=== PATIENT | female | born 1940 | race Caucasian/White ===

== ENCOUNTER 2017-02-09 06:58 | Observation (INO) | payer OTHER ==
[2017-02-09] VITALS (10 sets, daily range): BP systolic 114–166; BP diastolic 74–93; PULSE 73–82; TEMP 36.3–37.3; O2SAT 95–99; Ht 162.6 cm; Wt 53.6 kg
[~2017-02-09] VITALS: Ht 162.6 cm; Wt 53.6 kg
[2017-02-09] MEDS ORDERED: FRS/40 PO (07:53)
[2017-02-09] MEDS ORDERED: LEVO50TA6 PO (07:53)
[2017-02-09] MEDS ORDERED: AMT50 PO (07:53)
[2017-02-09] MEDS ORDERED: HYDR-5688 PO (07:53)
[2017-02-09] MEDS ORDERED: LNX125 PO (07:53)
[2017-02-09] MEDS ORDERED: METO25TA56 PO (07:53)
[2017-02-09] MEDS ORDERED: POTA10TA PO (07:53)
[2017-02-09] MEDS ORDERED: APIX1TAB3 PO (07:53)
--- NOTE | 2017-02-09 08:13 | Procedure Note ---
Pre-Mod Sedation Assessment General Date of Moderate Sedation: Feb 09, 2017. Vital Signs: Vital Signs Past 12 Hours Date Time Temp Pulse Resp B/P (MAP) Pulse Ox O2 Delivery O2 Flow Rate FiO2 02/09/17 07:41 36.6 73 16 144/90 98 Room Air Review Cardiovascular: + irregularly irregular Abdomen: soft Lungs: lungs clear Airway Class: II Pre-Sedation Airway Assessment Oral Cavity: WNL Short Thick Neck: No Hx of Sleep Apnea: No Smoking Status: Never Smoker Mallampati Classification: Class II ASA Classification: Class II Procedure Planning Contraindications-for Mod Sed: None Yes Notes The planned sedation has been discussed with the patient and consent obtained. I have identified the patient, determined the appropriateness of sedation and have assessed the patient immediately prior to the procedure. All medicine(s) and interventions are by my order.
--- NOTE | 2017-02-09 08:13 | History & Physical Bridge Note ---
H&P Re-Evaluation Bridge Note: I have examined the patient, reviewed the History & Physical and in the interval since the performance of the History & Physical I have noted the following changes of clinical significance: No changes noted
[2017-02-09] MEDS ORDERED: MIDAZOLAM HCL 5 MG/ML 1 ML VIAL ONE ×2 (08:30→10:06)
[2017-02-09] MEDS ORDERED: FENTANYL CITRATE INJ 50 MCG/1 ML 2 ML VIAL ONE ×3 (08:30→13:36)
[2017-02-09] MEDS ORDERED: HEPARIN SOD (PORCINE) 1000 UNIT/ML 10 ML VIAL ONE (09:28)
[2017-02-09] MEDS ORDERED: MIDAZOLAM HCL 1 MG/ML 2ML VIAL ONE (13:36)
--- NOTE | 2017-02-09 13:57 | Procedure Note ---
Post-Mod Sedation Assessment General Date of Moderate Sedation Feb 09, 2017. Vital Signs: Vital Signs Past 12 Hours Date Time Temp Pulse Resp B/P (MAP) Pulse Ox O2 Delivery O2 Flow Rate FiO2 02/09/17 13:53 80 14 139/97 (111) 98 Mask 02/09/17 07:41 36.6 73 16 144/90 98 Room Air Review - Discharge Criteria Vital Signs Stable: Yes Alert/Oriented/Conversant: Yes Returned to Baseline Mental St: Yes Nausea Absent/Minimal: Yes Pain/Discomfort/Absent/Minimal: Yes Normal/Baseline Respirations: Yes Active Bleeding?: No Pt Received D/C Instructions: N/A Prescriptions Given: None Specific Proced. D/C Criteria Distal Pulses Present (Cardiac: N/A Groin site assessed-Card Cath: N/A Voided Prior To Discharge: N/A Discharged Patients Adult Escort/Transportation: N/A
[2017-02-09] MEDS ORDERED: HYDROCODONE/ACETAMOPHEN 5/325MG TAB PO PRN (14:00)
--- NOTE | 2017-02-09 14:01 | [facility] Post Operative Brief Note ---
Immediate Operative Summary Operative Date Feb 09, 2017. Pre-Operative Diagnosis SVT flutter Post-Operative Diagnosis atypical atrial flutter Procedure(s) Performed eps, cardioversion x2, radiofrequency ablation, 3d activation mapping of RA x3 Surgeon allan menard Blender Conveyor Operator Surgeon(s) none Estimated Blood Loss <5cc Findings see official report Fluids (cc crystalloids) 1200cc Specimens none Drains none Anesthesia 12mg versed and 250mcg fentanyl Complication(s) None Disposition PCU
[2017-02-09] MEDS ORDERED: IV FLUIDS COMPLETED PRN (14:30)
[2017-02-09] MEDS ORDERED: APIXABAN 2.5 MG TAB PO ONE (15:00)
[2017-02-09] MEDS: METOPROLOL TARTRATE 50 MG TAB PO SCH ×2 (15:40→21:30)
[2017-02-09 15:52] LABS: CREATININE 0.53 mg/dl (0.60-1.20)
[2017-02-09] MEDS ORDERED: INFLUENZA ADMINISTRATION CHARGE ONE (16:15)
[2017-02-09] MEDS ORDERED: INFLUENZA VACCINE HIGH DOSE 65+ 0.5 ML SYR IM. ONE (16:15)
[2017-02-09] MEDS ORDERED: NURSING DECISION MEDICATION ORDER SCH (19:45)
[2017-02-09] MEDS ORDERED: MoRPHine SULFATE 2 MG/ML CARP IV PRN (20:00)
[2017-02-09] MEDS ORDERED: AMITRIPTYLINE HCL 50 MG TAB PO SCH (21:00)
[2017-02-09] MEDS: APIXABAN 2.5 MG TAB PO SCH (21:28)
[2017-02-09] MEDS: FUROSEMIDE 40 MG TAB PO SCH (21:29)
[2017-02-10 03:20] VITALS: BP 125/79; PULSE 78; TEMP 36.8; O2SAT 93
[2017-02-10] MEDS ORDERED: LEVOTHYROXINE 50 MCG TAB PO SCH (06:00)
[2017-02-10 08:02] VITALS: BP 121/81; PULSE 78; TEMP 36.8; O2SAT 97
--- NOTE | 2017-02-10 08:45 | Discharge Instructions ---
Discharge Instructions Date of Service Feb 10, 2017. Admission Reason for Admission: Atrial Flutter, Zazzali Discharge Discharge Diagnosis / Problem: atypical atrial flutter Discharge Goals Goal(s): Improve function Activity Recommendations Activity Limitations: as noted below Lifting Limitations: no more than 10 pounds (no heavy lifting or squating for 1 week) Shower/Bathe: tomorrow Driving or Machine Use: resume 1 day after discharge . Instructions / Follow-Up Instructions / Follow-Up ACTIVITY RECOMMENDATIONS: It is common to feel weak and fatigue for a few days. * Do not drive or operate any motorized equipment for the next 1 day. * Limit stair usage (2 or 3 trips a day only) for the next 1 days. * Do not lift anything heavier than 10 pounds for the next 7 days. * Do not engage in vigorous exercise or any sports for the next five days. * You may shower the day after your procedure, but do not immerse the area for three days. Cleanse the site gently with soap and water. SPECIAL CARE INSTRUCTIONS: * You may replace the pressure dressing or band-aid the morning after the procedure. * After your procedure, it is normal to have a small bruise or small lump at the site. Examine your site daily for any change in the bruise or lump, redness, swelling, drainage or numbness. Notify your doctor if any change. BLEEDING: * If there is a small amount of bleeding at the site, lie down and apply firm pressure with a clean cloth for ten minutes. When the bleeding stops, lie quietly keeping the procedure limb straight for six hours. Notify your doctor as soon as possible. * If the bleeding does not stop after ten minutes or if there is a large amount of bleeding or spurting, call 911 immediately. Continue to lie down and hold firm pressure until help arrives. SKIN IRRITATION: * You may experience some redness and/or swelling in the area where radiation was administered. If any skin irritation occurs, please contact your family physician. FOLLOW UP VISIT: Keep any scheduled doctor appointments. Current Hospital Diet Patient's current hospital diet: AHA Diet (Heart Healthy) Discharge Diet Recommended Diet: AHA Diet (Heart Healthy), Low Sodium Diet (2gm Na) Procedures Procedures Performed: eps, cardioversion x2, radiofrequency ablation, 3d activation mapping of RA x3 Pending Studies Studies pending at discharge: no Medical Emergencies . Who to Call and When: Medical Emergencies: If at any time you feel your situation is an emergency, please call 911 immediately. . Non-Emergent Contact Non-Emergency issues call your: Segmental Paver Installer . . "Provider Documentation" section prepared by Mariana Jefferson. . VTE Core Measure Inpt VTE Proph given/why not?: Other Anticoagulation
[2017-02-10] MEDS: FUROSEMIDE 40 MG TAB PO SCH (08:48)
[2017-02-10] MEDS: METOPROLOL TARTRATE 50 MG TAB PO SCH (08:48)
[2017-02-10] MEDS: APIXABAN 2.5 MG TAB PO SCH (08:48)
--- NOTE | 2017-02-10 08:51 | Discharge Summary ---
Discharge Summary Date of Service Feb 10, 2017. Discharge Summary Admission Date: Feb 09, 2017 at 13:57 Discharge Date: Feb 10, 2017 Discharge Disposition: Home Principal Diagnosis: atypical atrial flutter Secondary Diagnoses/Problems: cad s/p cabg htn hld chronic diastolic hf, nyha class ii Procedures: EPS, radiofrequency ablation, 3d activation mapping of arrhythmia x3, cardioversion x2 Medication Reconciliation Continued Medications: Amitriptyline Hcl (Elavil) 50 Mg Tab 50 MG PO HS, TAB Apixaban (Eliquis) 5 Mg Tab 5 MG PO BID, TAB Digoxin (Digoxin) 0.125 Mg Tab 1 TAB PO DAILY Furosemide (Lasix) 40 Mg Tab 40 MG PO BID, TAB Hydrocodone/Acetaminophen 5MG/325MG ([place] 5MG/325MG) Tab 1 TAB PO BID PRN for Pain for 30 Days, #60 TAB PRN PAIN Levothyroxine Sodium (Levothyroxine Sodium) 50 Mcg Tab 1 TAB PO DAILY for 30 Days, #30 TAB 5 Refills Metoprolol Tartrate (Lopressor) (Lopressor) 25 Mg Tab 50 MG PO BID, TAB Potassium Chloride (K-Tabs) 10 Meq Tab 20 MEQ PO DAILY Admission Information Physical Exam (per Admitting): aaox3, nad nc/at, eomi supple, no jvd irregular irregular s1/s2, + systolic murmur CTA b/l, no w/r/r soft NT/ND No Edema b/l No focal deficits Skin intact Hospital Course Pt admitted for elective EPS with possible ablation due to atrial flutter. Pt underwent typical atrial flutter ablation, but then had recurrent other atypical flutter/ atrial arrhythmias were induced. She ultimately was cardioverted to SR. She was monitored overnight and discharged home in stable condition. Total time spent on discharge = 30 minutes This includes examination of the patient, discharge planning, medication reconciliation, and communication with other providers. Discharge Instructions ACTIVITY RECOMMENDATIONS: It is common to feel weak and fatigue for a few days. * Do not drive or operate any motorized equipment for the next 1 day. * Limit stair usage (2 or 3 trips a day only) for the next three days. * Do not lift anything heavier than 10 pounds for the next 7 days. * Do not engage in vigorous exercise or any sports for the next five days. * You may shower the day after your procedure, but do not immerse the area for three days. Cleanse the site gently with soap and water. SPECIAL CARE INSTRUCTIONS: * You may replace the pressure dressing or band-aid the morning after the procedure. * After your procedure, it is normal to have a small bruise or small lump at the site. Examine your site daily for any change in the bruise or lump, redness, swelling, drainage or numbness. Notify your doctor if any change. BLEEDING: * If there is a small amount of bleeding at the site, lie down and apply firm pressure with a clean cloth for ten minutes. When the bleeding stops, lie quietly keeping the procedure limb straight for six hours. Notify your doctor as soon as possible. * If the bleeding does not stop after ten minutes or if there is a large amount of bleeding or spurting, call 911 immediately. Continue to lie down and hold firm pressure until help arrives. SKIN IRRITATION: * You may experience some redness and/or swelling in the area where radiation was administered. If any skin irritation occurs, please contact your family physician. FOLLOW UP VISIT: Keep any scheduled doctor appointments.
--- NOTE | 2017-02-10 08:54 | Cardiology Follow-Up ---
Subjective Subjective Date of Service: Feb 10, 2017. Pt evaluation today including: conversation w/ patient, physical exam Pain: none Review of Systems Constitutional: No weakness, No fatigue Respiratory: No shortness of breath, No dyspnea on exertion Cardiac: No chest pain, No edema, No palpitations Abdomen: No nausea, No vomiting, No diarrhea Endo: No fatigue Objective Vital Signs Last Vital Signs Documentation Date Time Temp Pulse Resp B/P (MAP) Pulse Ox O2 Delivery O2 Flow Rate FiO2 02/10/17 08:02 36.8 78 18 121/81 (94) 97 Room Air Physical Exam: General Appearance: WD/WN, no apparent distress Eyes: bilateral eyes PERRL, bilateral eyes EOMI Neck: supple, no JVD Respiratory/Chest: lungs clear, normal breath sounds Cardiovascular: regular rate, rhythm, no edema, no murmur Abdomen: soft Extremities: no pedal edema Neurologic/Psychiatric: alert, oriented x 3 Skin: warm/dry (b/l groins soft, no hematoma) Assessment and Plan Impression: 1. s/p ablation for typical flutter 02/09/2017 2. paroxysmal atypical atrial flutter induced in EP lab s/p dccv x2 02/09/2017 3. CAD h/o CABG 4. HTN 5. Chronic diastolic HF, NYHA Class II 6. HLD 7. Amiodarone intolerance-elevated LFTs adn GI upset Plan: -Discharge home today -Continue current outpatient medications -F/u in my office in 1 month Discharge planning: home Medications: Medications Administered Medications (Trade) Dose Ordered Sig/David Route Start Time Stop Time Status Last Admin Dose Admin Midazolam HCl (Versed Inj) 5 mg STK-MED ONCE .ROUTE 02/09/17 08:30 02/09/17 08:31 DC 02/09/17 08:30 5 MG Fentanyl Citrate (Fentanyl Inj) 100 mcg STK-MED ONCE .ROUTE 02/09/17 08:30 02/09/17 08:31 DC 02/09/17 08:30 100 MCG Midazolam HCl (Versed Inj) 5 mg STK-MED ONCE .ROUTE 02/09/17 10:06 02/09/17 10:07 DC 02/09/17 10:06 5 MG Fentanyl Citrate (Fentanyl Inj) 100 mcg STK-MED ONCE .ROUTE 02/09/17 10:06 02/09/17 10:07 DC 02/09/17 10:06 100 MCG Midazolam HCl (Versed Inj) 2 mg STK-MED ONCE .ROUTE 02/09/17 13:36 02/09/17 13:37 DC 02/09/17 13:36 2 MG Fentanyl Citrate (Fentanyl Inj) 100 mcg STK-MED ONCE .ROUTE 02/09/17 13:36 02/09/17 13:37 DC 02/09/17 13:36 50 MCG Amitriptyline HCl (Elavil Tab) 50 mg HS PO 02/09/17 21:00 03/11/17 20:59 02/09/17 21:28 50 MG Furosemide (Lasix Tab) 40 mg BID17 PO 02/09/17 21:00 03/11/17 20:59 02/09/17 21:29 40 MG Acetaminophen/ Hydrocodone Bitart ([place] 5/325 Tab) 1 tab BID PRN PO 02/09/17 14:00 02/23/17 13:59 02/09/17 17:04 1 TAB Levothyroxine Sodium (Synthroid Tab) 50 mcg DAILYBB PO 02/10/17 06:00 03/12/17 05:59 02/10/17 06:33 50 MCG Metoprolol Tartrate (Lopressor Tab) 50 mg BID PO 02/09/17 15:00 03/11/17 14:59 02/09/17 21:30 50 MG Apixaban (Eliquis Tab) 5 mg BID PO 02/09/17 21:00 03/11/17 20:59 02/09/17 21:28 5 MG Morphine Sulfate (MoRPHine SULFATE INJ) 1 mg Q6H PRN IV 02/09/17 20:00 02/23/17 19:59 02/09/17 20:06 1 MG Lab Results: Telemetry: SR ECG: SR Last 24 Hours Test 02/09/17 15:14 Creatinine 0.53 mg/dl Est Creatinine Clear Calc Drug Dose 75.0 ml/min Estimated GFR () 105.4 Estimated GFR (Non- 90.9
[2017-02-10] MEDS ORDERED: POTASSIUM CHLORIDE 20 MEQ TABCR PO SCH (09:00)
[2017-02-10 10:40] VITALS: BP 121/81; PULSE 78; TEMP 36.8; O2SAT 97
[2017-02-10 11:09] VITALS: BP 134/77; PULSE 76; TEMP 36.9; O2SAT 96
--- NOTE | 2017-02-16 15:37 | OPERATIVE REPORT ---
DATE OF OPERATION: 02/09/2017 PREOPERATIVE DIAGNOSIS: Persistent atrial flutter, heart failure with chronic diastolic heart failure. POSTOPERATIVE DIAGNOSIS: Same in addition to atypical atrial flutter and a lot of electrical scar on the lateral right atrial wall. PROCEDURE: Electrophysiology study, 3D activation mapping of atrial flutter in the right atrium, 3D activation mapping of atrial arrhythmia after the flutter, radiofrequency ablation of cavotricuspid isthmus line, radiofrequency ablation connecting to scarred regions from up near the SVC down to the IVC. SURGEON: Mariana Jefferson D.O. CITY DRIVER: None. ANESTHESIA: Monitored conscious sedation administered under my supervision by Eddie Fish, start time 0830, end time 1353. A total of 12 mg of Versed, 250 mcg of fentanyl. INTRAVENOUS FLUIDS: 1200 mL. BLOOD LOSS: Less than 5 mL. COMPLICATIONS: None. CONDITION: Stable. URINE OUTPUT: Not applicable. SPECIMENS: None. FINDINGS: See below. DRAINS: None. INDICATIONS: This 76-year-old female who was initially found to be in atrial flutter back in April 2016. She underwent a cardioversion x2, one in May 2016 and one in October 2016. She was initially placed on amiodarone; however, due to elevated LFTs and GI symptoms this was stopped and she seemed to have refractory flutter. She is now on digoxin and beta blockers and still was having some episodes of acute diastolic heart failure due to atrial flutter so considered for an atrial flutter ablation. Of note, her other past medical history of coronary artery disease with a CABG, DUMONT to LAD back in 1998, hyperlipidemia and arthritis. CONSENT: Consent was obtained prior to the patient going into the electrophysiology lab. The patient was informed of risks, benefits and alternatives to the procedure. Risks include but not limited to sudden cardiac , cardiac arrhythmia, cerebrovascular accident, myocardial infarction, injury to the blood vessels, chamber of the heart, the white earth electrical system where she would need permanent pacemaker, bleeding and infection. The patient understood these risks and agreed to the procedure as planned. Informed consent was obtained. DESCRIPTION OF THE PROCEDURE: The patient was brought into the electrophysiology lab in a fasting state. She was connected to continuous cardiac monitoring. A time-out was performed to ensure patient identity and procedure correctly. The patient was prepped and draped over the bilateral groins in normal surgical standard fashion. Monitored conscious sedation was given throughout the procedure for patient's comfort level. Pavilion precautions were maintained throughout the procedure. 10 mL of 1% lidocaine were given in the bilateral groins for local anesthesia. Using the modified Seldinger technique under ultrasound guidance with a micropuncture kit venous access was obtained in the following manner and then upsized to a larger sheath in the following manner. The left femoral vein had a 6-Dutch sheath, followed by a Sky quadripolar catheter positioned into the right ventricular apex. A 7-Dutch sheath in the left femoral vein, a 7-Dutch sheath followed 20 pole Halo catheter position around the right atrium. A 7-Dutch sheath followed by a Biosense DF curve Decapolar coronary sinus catheter positioned into the coronary sinus. The right femoral vein had initially a 6-Dutch sheath that was ultimately swapped out for an SRO sheath followed by a Biosense ThermoCool DF curve ablation catheter. Of note, the coronary sinus was not all the way out into the coronary sinus and the proximal pole was probably more in the right atrium and pole 7-8 was probably right on the coronary sinus os. First in treatment of atrial flutter was assessed so with coronary sinus distal pacing the atrial flutter cycle length was 250 with coronary sinus distal burst pacing to entrain. The PPI interval is 290 showing a PPI minus tachycardia cycle length of 40 milliseconds. With pacing from the coronary sinus pole 7-8 again which probably right around the coronary sinus os the PPI interval was 276 with atrial flutter tachycardia length of 250 making the PPI minus tachycardia cycle length of 24 milliseconds. With coronary sinus burst pacing to entrain the line and again this probably was on the CT line because it was in the right atrium because I could not get the coronary sinus catheter all the way out the PPI interval was 246 making the tachycardia cycle length minus PPI of 4 milliseconds. We did do 3D activation mapping of the initial atrial flutter that she presented in and confirmed that it was a counterclockwise flutter and it looked like it was through the caval tricuspid line isthmus so I set up to do a standard cavotricuspid isthmus ablation. Of note, during the activation mapping the whole lateral wall did not have any signals, it was all scarred electrically. Of note, part of the CT line also seemed to be a lot of tissue or at least very minimal signals so my CTI line was more medial than lateral. I gave a series of radiofrequency ablations at [address]. Of note, I did 3D map the His bundle region as well as the coronary sinus os prior to starting the CTI line. When I got close to the IVC and her right atrium was very small, when I was close to the IVC there was a slowing of the arrhythmia and change in its activation. At one point, it looked like I mechanically may have broke the rhythm because she went into sinus rhythm when I was up near the His bundle with the ablation catheter. I then went to try to reinduced, I then started an electrophysiology study with the following findings. The sinus cycle length was 900 milliseconds. The AH cycle length was 88 milliseconds, HV was 58 milliseconds, AV Wenckebach was 460, the AV node was 800/320 and 600/325. The atrial ERP was 800/220 and 600/240. I did end up reinducing the second arrhythmia that came about after I finished my CTI line. This arrhythmia was then 3D mapped and it looked like possibly the earliest site was up near the SVC and like I said there was a lot of scarred electrical activity from the lateral wall down. I at this point asked Dr. Duffy and Dr. Philip, my colleague EPs for their advice. We decided that we would try to connect the 2 scarred sites dragging ablation from the SVC down to the IVC. With this when I started up in the SVC it did seem to change the atrial circuit at least to cycle length but I never was able to break it. Since it did look like it was slowing I then did another 3D map of this third atrial arrhythmia and this one seemed to map down towards the lower right atrial septum without being able to 3D map the left atrium. I opted not to do any more ablation. Ultimately, we cardioverted the patient back with synchronized cardioversion at 200 joules. Initially the first one did break, but it was only temporary, she went back into this atrial arrhythmia so I had to do a second one. The second one at 200 joules was performed and maintained sinus rhythm. The catheters were all removed from the body and manual compression was used to establish hemostasis with pulling of the sheets. IMPRESSION: 1. Successful cavotricuspid isthmus ablation for typical counterclockwise atrial flutter. 2. Multiple other atrial arrhythmias, possibly atypical atrial flutter circuits or paroxysmal atrial tachycardia with possibly 1 coming from the left side. PLAN: Monitor patient overnight, 12-lead ECG. She can continue her metoprolol and digoxin. No heavy lifting or squatting for 1 week. She should follow up in my [place] office in 1 month. I attest to the content of the Intraoperative Record and any orders documented therein. Any exception s are noted below.
== END 2017-02-10 13:12 | disposition home or self-care (01) ==
LOC: C.EP 06:58 → ENRESERV 11:35 → C.2T 13:57
PROVIDERS: ADMIT Internal Medicine; ATTEND Internal Medicine
DX: I48.4 Atypical atrial flutter (principal); I25.10 Atherosclerotic heart disease of native coronary artery without angina pectoris; I11.0 Hypertensive heart disease with heart failure; E78.5 Hyperlipidemia, unspecified; I50.32 Chronic diastolic (congestive) heart failure; Z95.1 Presence of aortocoronary bypass graft; Z96.659 Presence of unspecified artificial knee joint